=== PATIENT | female | born 1990 | race American Indian/Alaskan Native ===

== ENCOUNTER 2016-07-13 10:20 | Emergency (ER) | payer SELFPAY ==
[2016-07-13 12:27] LABS: Hematocrit 32.3 % (30.3-42.9); Hemoglobin 10.7 gm/dl (10.1-14.3); Mean Corpuscular HGB Conc 33 % (30-34); Mean Corpuscular Hemoglobin 28 pg (28-32); Mean Corpuscular Volume 85 fl (79-97); Platelet Count 322 K/mm3 (140-440); Red Blood Count 3.82 M/mm3 (3.65-5.03); Red Cell Distribution Width 13.4 % (13.2-15.2); White Blood Count 5.9 K/mm3 (4.5-11.0)
[2016-07-13 12:31] LABS: Alanine Aminotransferase 12 units/L (7-56); Albumin 3.7 g/dL (3.9-5); Albumin/Globulin Ratio 0.8 %; Alkaline Phosphatase 91 units/L (35-129); Anion Gap 19 mmol/L; Bilirubin,Total 0.5 mg/dL (0.1-1.2); Blood Urea Nitrogen 11 mg/dL (7-17); Carbon Dioxide 21 mmol/L (22-30); Chloride 94.2 mmol/L (98-107); Glucose 427 mg/dL (65-100); Sodium 130 mmol/L (137-145); Total Protein 8.1 g/dL (6.3-8.2)
[2016-07-13 13:24] LABS: Basophils % (Manual) 0 % (0.0-1.8); Blastocytes % (Manual) 0 %; Eosinophils % (Manual) 0 % (0.0-4.3)
[2016-07-13 13:25] LABS: Diff Status Complete; RBC Morphology Normal
[2016-07-13 15:12] LABS: Bacteria,Urine 2+ /HPF (Negative); Bilirubin,Urine NEG (Negative); Blood,Urine MOD (Negative); Ketones,Urine NEG (Negative); Leukocyte Esterase,Urine MOD (Negative); Mucus,Urine FEW /HPF; Nitrite,Urine NEG (Negative); Protein,Urine <15 mg/dL mg/dL (Negative); Urobilinogen,Urine < 2.0 mg/dL (<2.0)
--- NOTE | 2016-07-13 16:14 | Emergency Department Report ---
<PB HARLEY - Last Filed: 07/13/16 19:47> - General Chief Complaint: Upper Respiratory Infection Stated Complaint: HIGH BLOOD SUGAR/HEADACHE/EARACHE Time Seen by Provider: 07/13/16 16:02 Source: patient Mode of arrival: Ambulatory Limitations: No Limitations - History of Present Illness Initial Comments: This is a 26-year-old female that presents with left ear ache, sore throat, urinary urgency, urinary frequency, and body aches. Patient is a type 1 diabetes. Denies taking her medications. Patient stated her last medication that she took was yesterday evening. She states she currently does have medication at home. Patient denies any shortness of breath, chest pain, headache, numbness or tingling sensation in upper and lower extremity's. Patient does not seem and talkative parents or any signs of distress. Patient stated had similar symptoms last year and was diagnosed with the flu. Denies any fever or chills. Patient stated takes NovoLog mix units subcutaneous 3 times a day. MD Complaint: sore throat, other (body aches, left earache) -: Gradual, days(s) (3 days) Severity: moderate Severity scale (0 -10): 9 (pain level) Consistency: constant Improves With: nothing - Related Data Home Medications Medication Instructions Recorded Confirmed Last Taken Insulin Aspart [NovoLOG 100 30 unit SQ HS 09/17/15 11/06/15 Unknown UNITS/ML VIAL] Insulin Aspart Prot/Aspart(Nf) 0 units SUB-Q ACHS 11/06/15 11/06/15 Unknown [NovoLOG Mix 70/30 VIAL] Previous Rx's Medication Instructions Recorded Last Taken Type levETIRAcetam [Keppra TAB] 500 mg PO BID #60 tablet 09/17/15 Unknown Rx Amoxicillin/K Clav Tab [Augmentin 1 tab PO Q12HR 7 Days 07/13/16 Unknown Rx 875 mg] Ondansetron [Zofran Odt] 4 mg PO Q8HR #15 tab.rapdis 07/13/16 Unknown Rx Allergies Allergy/AdvReac Type Severity Reaction Status Date / Time acetaminophen [From Percocet] Allergy Swelling Verified 11/06/15 11:12 oxycodone HCl [From Percocet] Allergy Swelling Verified 11/06/15 11:12 ED Review of Systems ROS: Stated complaint: HIGH BLOOD SUGAR/HEADACHE/EARACHE Other details as noted in HPI Constitutional: denies: chills, fever Eyes: denies: eye pain, eye discharge, vision change ENT: ear pain (left), throat pain. denies: dental pain, hearing loss, congestion Respiratory: denies: cough, shortness of breath, SOB with exertion, SOB at rest , wheezing Cardiovascular: denies: chest pain, palpitations Endocrine: no symptoms reported Gastrointestinal: denies: abdominal pain, nausea, diarrhea Genitourinary: denies: urgency, dysuria, discharge Musculoskeletal: denies: back pain, joint swelling, arthralgia Skin: denies: rash, lesions Neurological: denies: headache, weakness, paresthesias Psychiatric: denies: anxiety, depression Hematological/Lymphatic: denies: easy bleeding, easy bruising ED Past Medical Hx - Past Medical History Hx Hypertension: Yes Hx Congestive Heart Failure: No Hx Diabetes: Yes (type 1) Hx GERD: Yes Hx Seizures: Yes (EPILEPSY) Hx Asthma: No Hx COPD: No Hx Dementia: No Hx HIV: No - Surgical History Past Surgical History?: Yes Additional Surgical History: left elbow surgery - Social History Smoking Status: Never Smoker Substance Use Type: Alcohol - Medications Home Medications: Home Medications Medication Instructions Recorded Confirmed Last Taken Type Insulin Aspart [NovoLOG 100 30 unit SQ HS 09/17/15 11/06/15 Unknown History UNITS/ML VIAL] levETIRAcetam [Keppra TAB] 500 mg PO BID #60 tablet 09/17/15 11/06/15 Unknown Rx Insulin Aspart Prot/Aspart(Nf) 0 units SUB-Q ACHS 11/06/15 11/06/15 Unknown History [NovoLOG Mix 70/30 VIAL] Amoxicillin/K Clav Tab [Augmentin 1 tab PO Q12HR 7 Days 07/13/16 Unknown Rx 875 mg] Ondansetron [Zofran Odt] 4 mg PO Q8HR #15 tab.rapdis 07/13/16 Unknown Rx ED Physical Exam - General Limitations: No Limitations General appearance: alert, in no apparent distress - Head Head exam: Present: atraumatic, normocephalic, normal inspection - Eye Eye exam: Present: normal appearance, PERRL, EOMI - ENT ENT exam: Present: normal orophraynx, mucous membranes moist, normal external ear exam. Absent: TM's normal bilaterally (left ear erythema with fluid) - Neck Neck exam: Present: normal inspection, full ROM. Absent: tenderness, meningismus, lymphadenopathy - Respiratory Respiratory exam: Present: normal lung sounds bilaterally. Absent: respiratory distress, wheezes, rales, rhonchi - Cardiovascular Cardiovascular Exam: Present: regular rate, normal rhythm. Absent: systolic murmur, diastolic murmur, rubs, gallop - GI/Abdominal GI/Abdominal exam: Present: soft, normal bowel sounds - Extremities Exam Extremities exam: Present: normal inspection, full ROM, normal capillary refill. Absent: tenderness, pedal edema, joint swelling, calf tenderness - Back Exam Back exam: Present: normal inspection, full ROM. Absent: tenderness, CVA tenderness (R), CVA tenderness (L), muscle spasm, vertebral tenderness - Neurological Exam Neurological exam: Present: alert, oriented X3, CN II-XII intact - Psychiatric Psychiatric exam: Present: normal affect, normal mood - Skin Skin exam: Present: warm, dry, intact, normal color. Absent: rash ED Course Vital Signs 07/13/16 07/13/16 07/13/16 11:04 17:50 18:26 Temperature 99.6 F 98.8 F 98.4 F Pulse Rate 109 H 105 H 103 H Respiratory 20 18 16 Rate Blood Pressure 133/89 Blood Pressure 130/78 120/72 [Right] O2 Sat by Pulse 100 100 99 Oximetry 07/13/16 21:54 Temperature 98.4 F Pulse Rate 95 H Respiratory 20 Rate Blood Pressure Blood Pressure 122/68 [Right] O2 Sat by Pulse 99 Oximetry Vital Signs 07/13/16 07/13/16 11:04 17:50 Temperature 99.6 F 98.8 F Pulse Rate 109 H 105 H Respiratory 20 18 Rate Blood Pressure 133/89 Blood Pressure 130/78 [Right] O2 Sat by Pulse 100 100 Oximetry - Reevaluation(s) Reevaluation #1: 07/13/16 16:20 Patient does not seem toxic or ill appearance. No signs and distress. Patient is laying down in bed and as per patient stated comfortable. 07/13/16 16:56 RN attempted to start an IV with no success. Dr. Franklin aware of patient and treatment plan. 07/13/16 17:26 PO challenge with water Reevaluation #2: 07/13/16 17:26 Patient vomited PO challenge. 04/17/17 18:13 PO challenge again. Patient states still has body aches with chills. Reevaluation #3: 07/13/16 18:39 Patient tolerated fluids well. Drank about 500 mL. No signs of nausea or vomiting. 07/13/16 18:41 Dr. Franklin aware of d/c plan Reevaluation #4: 07/13/16 19:15 Patient state she feels much better but still has slightly body aches. ED Medical Decision Making - Lab Data Result diagrams: 07/13/16 11:51 07/13/16 11:51 - Medical Decision Making ED course: 26-year-old feel the patient's with upper respiratory symptoms, hyperglycemia, UTI 1- IV 1000 NS bolus attempted with no success. 2- Flu and strep throat for culture. Negative. 3- Fluids PO. Patient tolerated well with no signs of distress 4- Novolog 70/30 50 units subq. BG level: 430 5- ibuprofen 600 mg by mouth 6- Rocephin IM 7- Zofran PO 8- Patient is transferred to the main ED under the care of Dr. Franklin Critical care attestation.: If time is entered above; I have spent that time in minutes in the direct care of this critically ill patient, excluding procedure time. ED Disposition Clinical Impression: Hyperglycemia, URI (upper respiratory infection) Disposition: DISCHARGED TO HOME OR SELFCARE Is pt being admited?: No Does the pt Need Aspirin: No Condition: Stable Instructions: Diabetes Mellitus Type 2 in Adults (ED) Additional Instructions: If symptoms worsen post poor balance preserved. Please take your insulin as prescribed by primary care doctor. Follow-up with the primary care doctor in 3-5 days Drink fluids as much as possible. Prescriptions: Amoxicillin/K Clav Tab [Augmentin 875 mg] 1 tab PO Q12HR 7 Days Ondansetron [Zofran Odt] 4 mg PO Q8HR #15 tab.[email or web address] Referrals: PRIMARY CARE, [Primary Care Provider] - 3-5 Days <CORINE LOBO I. - Last Filed: 07/13/16 22:07> ED Medical Decision Making - Lab Data Result diagrams: 07/13/16 11:51 07/13/16 11:51
[2016-07-13] MEDS ORDERED: NACL 0.9% 1000 ML 1,000 ML IV ONE (16:17)
[2016-07-13] MEDS ORDERED: MOTRIN PO ONE (17:05)
[2016-07-13] MEDS ORDERED: TORADOL IM ONE (17:23)
[2016-07-13] MEDS ORDERED: XYLOCAINE 1% MPF 5 mL INFILTRATI ONE (17:24)
[2016-07-13] MEDS ORDERED: ROCEPHIN IM ONE (17:24)
[2016-07-13] MEDS ORDERED: ZOFRAN ODT PO ONE (17:25)
[2016-07-13 21:55] VITALS: BP 122/68
== END 2016-07-13 22:20 | disposition home or self-care (01) ==
LOC: ED 10:20
DX: E10.65 Type 1 diabetes mellitus with hyperglycemia (principal); J06.9 Acute upper respiratory infection, unspecified; I10 Essential (primary) hypertension; K21.9 Gastro-esophageal reflux disease without esophagitis; G40.909 Epilepsy, unspecified, not intractable, without status epilepticus; Z79.4 Long term (current) use of insulin; Z88.8 Allergy status to other drugs, medicaments and biological substances
CPT/HCPCS: 36415; 80053; 81001; 81025; 82010; 82962; 85007; 85025; 87116; 87400; 87430; 96372; 99284; J0696; J1815; J7030; Q0162